=== PATIENT | male | born 1955 | race Hispanic/Latino ===

== ENCOUNTER → 2018-01-24 | Outpatient (CLI) | payer OTHER ==
[~2018-01-24] MED LIST: ASPI-555 PO; ATOR40TA71 PO; CALC667T5 PO; FOLI0.8T41 PO; IOHEXOL-350 50ML VIAL IV ONE; IOHEXOL-350 75 ML VIAL IV ONE; LEVO50TA4 PO; METO50TA18 PO
== END | disposition home or self-care (01) ==
LOC: RAH 08:10
PROVIDERS: ATTEND Internal Medicine Cardiovascular Disease
DX: I70.0 Atherosclerosis of aorta (principal); I73.9 Peripheral vascular disease, unspecified; I25.10 Atherosclerotic heart disease of native coronary artery without angina pectoris
CPT/HCPCS: 75635; Q9967 ×2

== ENCOUNTER 2018-05-22 08:41 | Emergency (ER) | payer OTHER ==
[~2018-05-22 08:41] MED LIST changes: -IOHEXOL-350 50ML VIAL IV ONE; -IOHEXOL-350 75 ML VIAL IV ONE
[2018-05-22 09:57] LABS: BASOPHILS % (AUTO) 1.1 % (0.0-5.0); EOSINOPHILS % (AUTO) 2.4 % (0.0-8.0); HEMATOCRIT 36.5 % (42-54); MEAN CORPUSCULAR HEMOGLOBIN 28.8 pg (27.0-33.0); MEAN CORPUSCULAR HGB CONC 32.5 g/dL (32.0-36.0); MEAN CORPUSCULAR VOLUME 88.4 fL (79-99); MONOCYTES % (AUTO) 6.1 % (3.0-13.0); NEUTROPHILS % (AUTO) 83.4 % (40.0-77.0); PLATELET COUNT (AUTO) 123 K/uL (130-400); RED BLOOD CELL COUNT(AUTO) 4.13 MIL/uL (4.50-6.20); RED CELL DISTRIBUTION WIDTH 19.8 % (11.0-15.5); WHITE BLOOD COUNT (AUTO) 5.2 K/uL (4.8-10.8)
[2018-05-22 10:10] LABS: INR 1.02 (0.85-1.15); PARTIAL THROMBOPLASTIN TIME 28.5 SEC (26.3-35.5); PROTHROMBIN TIME 10.7 SEC (9.6-11.6)
[2018-05-22 10:12] LABS: CREATININE 5.6 mg/dL (0.5-1.5); POTASSIUM 3.9 mmol/L (3.5-5.1)
[2018-05-22 10:20] LABS: ALBUMIN 3.4 g/dL (3.5-5.0); BILIRUBIN,TOTAL 1.6 mg/dL (0.2-1.0); TOTAL PROTEIN, SERUM 7.4 g/dL (6.0-8.3)
[2018-05-22 10:50] LABS: CRP QUANTITATIVE 29.2 mg/L (0.00-9.0)
[2018-05-22 11:06] LABS: ERYTHROCYTE SEDIMENTATION RATE 35 MM/HR (0-20)
== END 2018-05-22 11:20 | disposition home or self-care (01) ==
LOC: EDH 08:41
DX: E87.70 Fluid overload, unspecified (principal); I12.0 Hypertensive chronic kidney disease with stage 5 chronic kidney disease or end stage renal disease; E11.22 Type 2 diabetes mellitus with diabetic chronic kidney disease; N18.6 End stage renal disease; E78.5 Hyperlipidemia, unspecified; Z99.2 Dependence on renal dialysis; Z88.6 Allergy status to analgesic agent; Z98.890 Other specified postprocedural states
CPT/HCPCS: 36415; 71045; 80053; 82550; 84484; 85025; 85610; 85651; 85730; 86140; 93005; 93970

== ENCOUNTER → 2018-11-15 | Outpatient (CLI) | payer OTHER ==
[~2018-11-15] MED LIST changes: +AMLO5TAB9 PO; +CALC667C10 PO; -CALC667T5 PO; +CILO100T PO; -FOLI0.8T41 PO; +INSU100V3 SQ; -METO50TA18 PO; +NPH,100V SQ; +SEVE800T27 PO
== END | disposition home or self-care (01) ==
LOC: SHCH 08:04
PROVIDERS: ATTEND Internal Medicine Cardiovascular Disease
DX: I08.1 Rheumatic disorders of both mitral and tricuspid valves (principal); I11.9 Hypertensive heart disease without heart failure; I27.20 Pulmonary hypertension, unspecified
CPT/HCPCS: 93306

== ENCOUNTER → 2018-12-05 | Outpatient (CLI) | payer OTHER ==
[~2018-12-05] VITALS: Ht 177.8 cm; Wt 103.4 kg
[~2018-12-05] MED LIST changes: +REGADENOSON 0.4 MG/5 ML PF SYG IVP SCH
== END | disposition home or self-care (01) ==
LOC: SHCH 09:02
PROVIDERS: ATTEND Internal Medicine Cardiovascular Disease
DX: I10 Essential (primary) hypertension (principal); I25.10 Atherosclerotic heart disease of native coronary artery without angina pectoris
CPT/HCPCS: 78452; 93017; 96374; A9500 ×2; J2785

== ENCOUNTER 2019-02-12 10:15 | Emergency (ER) | payer OTHER ==
[~2019-02-12 10:15] MED LIST changes: -REGADENOSON 0.4 MG/5 ML PF SYG IVP SCH
[2019-02-12] MEDS ORDERED: CEFTRIAXONE SODIUM 1 GM ONE (12:17)
[2019-02-12] MEDS ORDERED: SODIUM CHLORIDE 0.9% 100 ML IV ONE (12:18)
[2019-02-12 12:21] LABS: EOSINOPHILS % (AUTO) 2.3 % (0.0-8.0); HEMATOCRIT 35.7 % (42-54); LYMPHOCYTES % (AUTO) 7.5 % (21.0-51.0); MEAN CORPUSCULAR HEMOGLOBIN 30.2 pg (27.0-33.0); MEAN CORPUSCULAR HGB CONC 33.8 g/dL (32.0-36.0); MEAN CORPUSCULAR VOLUME 89.4 fL (79-99); NEUTROPHILS % (AUTO) 81.2 % (40.0-77.0); PLATELET COUNT (AUTO) 102 K/uL (130-400); RED BLOOD CELL COUNT(AUTO) 3.99 MIL/uL (4.50-6.20); RED CELL DISTRIBUTION WIDTH 17.5 % (11.0-15.5); WHITE BLOOD COUNT (AUTO) 6.2 K/uL (4.8-10.8)
[2019-02-12 12:36] LABS: PLATELET MORPHOLOGY COMMENT SLIGHTLY DECREASED
[2019-02-12] MEDS ORDERED: ACETAMINOPHEN EXTRA STRENGTH 500 MG TABLET ONE (12:42)
[2019-02-12 13:05] LABS: CREATININE 4.9 mg/dL (0.5-1.5); POTASSIUM 4.3 mmol/L (3.5-5.1)
[2019-02-12 13:09] LABS: ALBUMIN 3.1 g/dL (3.5-5.0); BILIRUBIN,TOTAL 1.5 mg/dL (0.2-1.0); TOTAL PROTEIN, SERUM 7.4 g/dL (6.0-8.3)
== END 2019-02-12 13:56 | disposition home or self-care (01) ==
LOC: EDH 10:15
DX: L03.211 Cellulitis of face (principal); E11.22 Type 2 diabetes mellitus with diabetic chronic kidney disease; I12.0 Hypertensive chronic kidney disease with stage 5 chronic kidney disease or end stage renal disease; N18.6 End stage renal disease; E78.5 Hyperlipidemia, unspecified; Z99.2 Dependence on renal dialysis; Z79.4 Long term (current) use of insulin; Z88.6 Allergy status to analgesic agent
CPT/HCPCS: 36415; 80053; 85025; 96374; 99284; J0696

== ENCOUNTER 2020-01-08 11:27 | Observation (INO) | payer OTHER ==
[2020-01-04 12:24] LABS: BASOPHILS % (AUTO) 1.1 % (0.0-5.0); EOSINOPHILS % (AUTO) 4.3 % (0.0-8.0); HEMATOCRIT 37.5 % (42-54); LYMPHOCYTES % (AUTO) 16.8 % (21.0-51.0); MEAN CORPUSCULAR HEMOGLOBIN 30.1 pg (27.0-33.0); MEAN CORPUSCULAR HGB CONC 33.3 g/dL (32.0-36.0); MEAN CORPUSCULAR VOLUME 90.4 fL (79-99); MONOCYTES % (AUTO) 9.2 % (3.0-13.0); NEUTROPHILS % (AUTO) 68.3 % (40.0-77.0); PLATELET COUNT (AUTO) 92 K/uL (130-400); RED BLOOD CELL COUNT(AUTO) 4.15 MIL/uL (4.50-6.20); RED CELL DISTRIBUTION WIDTH 15.2 % (11.0-15.5); WHITE BLOOD COUNT (AUTO) 3.7 K/uL (4.8-10.8)
[2020-01-04 12:27] LABS: APPEARANCE,URINE Clear (CLEAR); BILIRUBIN,URINE Negative (NEGATIVE); COLOR,URINE Dark Yellow (YELLOW); GLUCOSE, URINE (UA) TRACE mg/dL (NEGATIVE); KETONES,URINE Negative (NEGATIVE); LEUKOCYTE ESTERASE ,URINE Small (NEGATIVE); NITRATE,URINE Negative (NEGATIVE); OCCULT BLOOD,URINE Small (NEGATIVE); PROTEIN,URINE 300 mg/dL (NEGATIVE)
[2020-01-04 12:42] LABS: INR 1.08 (0.85-1.15); PARTIAL THROMBOPLASTIN TIME 27.5 SEC (26.3-35.5); PROTHROMBIN TIME 11.6 SEC (9.6-11.6)
[2020-01-04 12:49] LABS: CREATININE 4.9 mg/dL (0.5-1.5); POTASSIUM 3.9 mmol/L (3.5-5.1)
[2020-01-04 14:02] LABS: BACTERIA,URINE Rare /HPF (None Seen); RBC,URINE 0-1 /HPF (0-1); SQUAMOUS EPITHELIAL CELL,UR 0-2 /HPF (0-2)
--- NOTE | 2020-01-07 09:48 | NUR ---
LABS ANORMAL LABS AND CHEST XRAY REPORTED AND FAXED TO [facility], NO FURTHER ORDERS GIVEN, OK TO PROCEED WITH PLANNED PROCEDURE.
[2020-01-08] VITALS (10 sets, daily range): BP systolic 138–166; BP diastolic 68–80
[~2020-01-08] VITALS: Ht 177.8 cm; Wt 94.9 kg
[~2020-01-08 11:27] MED LIST changes: +ACETAMINOPHEN 325 MG TAB PO PRN; -AMLO5TAB9 PO; -ASPI-555 PO; +ASPI-556 PO; -CALC667C10 PO; -CILO100T PO; -INSU100V3 SQ; -LEVO50TA4 PO; -NPH,100V SQ; -SEVE800T27 PO; +SODIUM CHLORIDE 0.9% 500ML 500 ML IV SCH
[2020-01-08] MEDS ORDERED: SODIUM CHLORIDE 0.9% 1000ML 1,000 ML IV ONE (11:35)
--- NOTE | 2020-01-08 12:00 | NUR ---
DAY PT ARRIVAL PRE-CATH PT ARRIVED TO ROOM AMBULATORY NO COMPLAINT OF DISTRESS .[id number]. AT BEDSIDE.
[2020-01-08] MEDS ORDERED: HEPARIN SODIUM 1000UNIT/ML 10ML VIAL ONE (16:00)
[2020-01-08] MEDS ORDERED: IOHEXOL-350 75 ML VIAL IV ONE (16:00)
[2020-01-08] MEDS ORDERED: IOHEXOL 350 MG/ML 100ML INFUS..BTL IV ONE (16:00)
[2020-01-08] MEDS ORDERED: IOHEXOL-350 50ML VIAL IV ONE (16:00)
[2020-01-08] MEDS ORDERED: MEPERIDINE-PF 25 MG/ML SYG ONE (16:01)
[2020-01-08] MEDS ORDERED: LIDOCAINE HCL 2% 20ML ONE (16:01)
[2020-01-08] MEDS ORDERED: NITROGLYCERIN 2 MG/VIAL VIAL IV ONE (16:01)
[2020-01-08] MEDS ORDERED: MIDAZOLAM HCL 1 MG/ML 2ML VIAL ONE (16:01)
[2020-01-08] MEDS ORDERED: CLOPIDOGREL BISULFATE 300 MG TAB ONE (17:04)
[2020-01-08] MEDS ORDERED: ASPIRIN 81MG TAB.CHEW ONE (17:04)
[2020-01-08] MEDS ORDERED: DEXTROSE 50%-WATER 50 ML DISP.SYRIN IV PRN (17:15)
[2020-01-08] MEDS ORDERED: GLUCAGON 1MG KIT 1 MG ML IM PRN (17:15)
--- NOTE | 2020-01-08 18:00 | NUR ---
HOSPITALIST . WAS CALLED . FOR ADMISSION . CARE. AND DR. OLMEDO . WAS PAGED FOR THE ADMISSION NOTIFICATIONS
--- NOTE | 2020-01-08 18:00 | NUR ---
POSTOP. FROM SLEEVE SETTER LOCKSTITCH, REVIEW . ORDERS AND CARE. RT SCOTT LE DRY AND CLEAN. DENIES ANY CHEST PAIN, AND CALL LIGHT IN REACH.
[2020-01-08] MEDS ORDERED: CALC667T6 PO (19:03)
[2020-01-08] MEDS ORDERED: GABA-529 PO (19:03)
[2020-01-08] MEDS ORDERED: INSU100C6 SQ (19:59)
--- NOTE | 2020-01-08 20:00 | NUR ---
Doppler Check Patient s/p cardiac catheterization today. Dressing to right groin intact with no bleeding. Extremity warm to touch with sensation. Patient remain in flat position with pillow under head for comfort, denies pain at this time. Telemetry pack in place reading sinus rhythm in the 80s. Swelling noted to bilateral lower extremity, pulse not palpable but present on Doppler assessment. SHITAL Stone from the hospitalist group informed of patient's admission to the unit at 1907. His remains at the bedside.
[2020-01-08] MEDS ORDERED: ATORVASTATIN CALCIUM 20 MG TABLET PO SCH (21:00)
[2020-01-08] MEDS: INSULIN HUMULIN R 100 UNIT/ML 3ML SQ SCH (21:00)
--- NOTE | 2020-01-09 01:47 | NUR ---
Doppler Check Doppler check performed on dorsalis pedis pulse, the same noted strong regular amplification. Toes are pink, extremity warm to touch. Patient reminded that the extremity needs to remain flat until morning. Will continue to monitor patient.
--- NOTE | 2020-01-09 04:10 | NUR ---
Doppler Check Doppler check done on right and left dorsalis pedis for comparison. Pulse strong and regular, limb warm to touch with sensation and movement. Right groin dressing remains dry and intact.
[2020-01-09 04:12] VITALS: BP 158/76
[2020-01-09 06:14] LABS: HEMATOCRIT 36.6 % (42-54); MEAN CORPUSCULAR HEMOGLOBIN 29.5 pg (27.0-33.0); MEAN CORPUSCULAR HGB CONC 32.5 g/dL (32.0-36.0); MEAN CORPUSCULAR VOLUME 90.8 fL (79-99); RED BLOOD CELL COUNT(AUTO) 4.03 MIL/uL (4.50-6.20); RED CELL DISTRIBUTION WIDTH 15.2 % (11.0-15.5); WHITE BLOOD COUNT (AUTO) 4.3 K/uL (4.8-10.8)
--- NOTE | 2020-01-09 06:20 | NUR ---
Critical Lab Lab reported BUN- 61 and Cr- 9.2, Dr. Navarro paged at [phone] for Nephrology consult at 0620. Dialysis nurse on the unit spoke to her about the patient as today is his regularly scheduled dialysis day. She stated that Dr. Navarro has to see the patient first. Dr. Navarro called back at 0646 with orders for inpatient dialysis today, to inform cloth mercerizer back tender print production manager, and he will be in to see that patient later today. glass inspector Rachell Duran informed. RN stated that she will need order for acute Hepatitis panel. Orders will be entered.
[2020-01-09 06:22] LABS: POTASSIUM 5.2 mmol/L (3.5-5.1)
[2020-01-09 06:24] LABS: CREATININE 9.2 mg/dL (0.5-1.5)
[2020-01-09] MEDS: INSULIN HUMULIN R 100 UNIT/ML 3ML SQ SCH ×2 (06:37→11:30)
[2020-01-09 07:44] VITALS: BP 140/70
[2020-01-09] MEDS ORDERED: ASPIRIN 81 MG EC TAB PO SCH (09:00)
[2020-01-09] MEDS ORDERED: PANTOPRAZOLE SODIUM 40 MG TABLET.DR PO SCH (09:00)
[2020-01-09] MEDS ORDERED: CLOPIDOGREL BISULFATE 75 MG TAB PO SCH (09:00)
[2020-01-09 11:48] VITALS: BP 135/64
[2020-01-09] MEDS ORDERED: CLOP75TA14 PO (12:17)
[2020-01-09] MEDS ORDERED: METO25PO2 MC (12:17)
--- NOTE | 2020-01-09 14:33 | NUR ---
1925 PATIENT SIGNED HALL LETTER, I FAXED HALL LETTER TO [id number] AND PLACED IN CHART UNDER CONSENT TAB.
--- NOTE | 2020-01-09 15:33 | NUR ---
PATIENT DISCHARGE PATIENT DISCHARGED, IV DISCONTINUED, CATHLON INTACT BLEEDING CONTROLLED, PATIENT TOLERATED WITHOUT INCIDENT. DISCUSSED WITH PATIENT FOLLOW UP APPOINTMENT, AND NEW MEDICATIONS ALONG WITH STENT CARD. PATIENT STATED HE HAD NO ADDITIONAL QUESTIONS.
[2020-01-10 15:13] LABS: HEPATITIS A ANTIBODY IGM Negative (Negative); HEPATITIS B CORE IGM Negative (Negative); HEPATITIS Bs ANTIGEN SCREEN P Negative (Negative)
== END 2020-01-09 16:00 | disposition home or self-care (01) ==
LOC: DAH 11:27 → 4BH 11:28
PROVIDERS: ADMIT Internal Medicine; ATTEND Internal Medicine
DX: I25.10 Atherosclerotic heart disease of native coronary artery without angina pectoris (principal); I12.0 Hypertensive chronic kidney disease with stage 5 chronic kidney disease or end stage renal disease; N18.6 End stage renal disease; E78.5 Hyperlipidemia, unspecified; K21.9 Gastro-esophageal reflux disease without esophagitis; D64.9 Anemia, unspecified; I42.9 Cardiomyopathy, unspecified; Z99.2 Dependence on renal dialysis; Z95.1 Presence of aortocoronary bypass graft; Z79.899 Other long term (current) drug therapy; Z88.6 Allergy status to analgesic agent
CPT/HCPCS: 36415 ×2; 71045; 80048 ×2; 80074; 81001; 82948 ×4; 85025; 85027; 85610; 85730; 87088; 93005; 93459; 96372; A4215; A4216; A4221; A4222; A4223 ×3; A4606; A4663; C1760; C1769; C1887; C1894; C9604; G0378 ×14; J1644 ×2; J2175; J2250; J3490 ×2; J7030; Q9965; Q9967 ×2; 90935; 99156; 99157

== ENCOUNTER 2020-02-07 13:31 | Observation (INO) | payer OTHER ==
[~2020-02-07] VITALS: Ht 160 cm; Wt 94.9 kg
[~2020-02-07 13:31] MED LIST changes: -ACETAMINOPHEN 325 MG TAB PO PRN; +CALC667T6 PO; +CLOP75TA14 PO; +GABA-529 PO; +INSU100C6 SQ; +METO25PO2 MC; -SODIUM CHLORIDE 0.9% 500ML 500 ML IV SCH
[2020-02-07 14:12] LABS: EOSINOPHILS % (AUTO) 2.2 % (0.0-8.0); HEMATOCRIT 36.3 % (42-54); LYMPHOCYTES % (AUTO) 11.1 % (21.0-51.0); MEAN CORPUSCULAR HEMOGLOBIN 30.4 pg (27.0-33.0); MEAN CORPUSCULAR HGB CONC 32.8 g/dL (32.0-36.0); MEAN CORPUSCULAR VOLUME 92.8 fL (79-99); MONOCYTES % (AUTO) 8.2 % (3.0-13.0); NEUTROPHILS % (AUTO) 77.2 % (40.0-77.0); PLATELET COUNT (AUTO) 101 K/uL (130-400); RED BLOOD CELL COUNT(AUTO) 3.91 MIL/uL (4.50-6.20); RED CELL DISTRIBUTION WIDTH 16.2 % (11.0-15.5); WHITE BLOOD COUNT (AUTO) 5.8 K/uL (4.8-10.8)
[2020-02-07] MEDS ORDERED: ASPIRIN 325 MG TABLET ONE (14:22)
[2020-02-07 14:24] LABS: ALBUMIN 3.8 g/dL (3.5-5.0); BILIRUBIN,TOTAL 1.1 mg/dL (0.2-1.0); POTASSIUM 5.3 mmol/L (3.5-5.1); TOTAL PROTEIN, SERUM 8.4 g/dL (6.0-8.3)
[2020-02-07 14:28] LABS: CREATININE 8.1 mg/dL (0.5-1.5)
[2020-02-07 14:34] LABS: INR 1.07 (0.85-1.15); PARTIAL THROMBOPLASTIN TIME 25.7 SEC (26.3-35.5); PROTHROMBIN TIME 11.5 SEC (9.6-11.6)
[2020-02-07] MEDS ORDERED: LACTULOSE 20 GM/30 ML UDCUP PO PRN (18:30)
[2020-02-07] MEDS ORDERED: SODIUM POLYSTYRENE SULFONATE 15 GM/60 ML ML PO SCH (18:30)
[2020-02-07] MEDS ORDERED: ONDANSETRON HCL 4 MG/2 ML VIAL IV PRN (18:30)
[2020-02-07] MEDS ORDERED: ACETAMINOPHEN 325 MG TAB PO PRN (18:30)
[2020-02-07] MEDS ORDERED: GABAPENTIN 100 MG CAPSULE PO PRN (18:30)
[2020-02-07] MEDS: CALCIUM ACETATE 667 MG CAPSULE PO SCH (18:33)
[2020-02-07 20:09] LABS: APPEARANCE,URINE Cloudy (CLEAR); BILIRUBIN,URINE Negative (NEGATIVE); COLOR,URINE Yellow (YELLOW); GLUCOSE, URINE (UA) 500 mg/dL (NEGATIVE); KETONES,URINE Trace mg/dL (NEGATIVE); LEUKOCYTE ESTERASE ,URINE Moderate (NEGATIVE); NITRATE,URINE Negative (NEGATIVE); OCCULT BLOOD,URINE Trace (NEGATIVE); PH,URINE 7.5 (5.0-8.0); PROTEIN,URINE 300 mg/dL (NEGATIVE)
[2020-02-07 20:12] LABS: POTASSIUM 5.5 mmol/L (3.5-5.1)
[2020-02-07 20:18] LABS: CREATININE 8.7 mg/dL (0.5-1.5)
[2020-02-07 20:34] LABS: BACTERIA,URINE Few /HPF (None Seen); RBC,URINE None Seen /HPF (0-1); WBC,URINE 26-50 /HPF (0-1)
[2020-02-07 20:35] LABS: SQUAMOUS EPITHELIAL CELL,UR 0-2 /HPF (0-2)
[2020-02-07] MEDS: METOPROLOL TARTRATE 25 MG TAB PO SCH (21:00)
[2020-02-07] MEDS: INSULIN HUMULIN R 100 UNIT/ML 3ML SQ SCH (21:00)
[2020-02-07] MEDS ORDERED: FAMOTIDINE 20MG TAB 20 MG TAB ONE (21:56)
[2020-02-07] MEDS ORDERED: SODIUM POLYSTYRENE SULFONATE 15 GM/60 ML ML ONE (21:56)
[2020-02-07] MEDS ORDERED: GABAPENTIN 100 MG CAPSULE ONE (21:57)
[2020-02-07] MEDS ORDERED: METOPROLOL TARTRATE 25 MG TAB ONE (21:57)
[2020-02-07] MEDS ORDERED: CALCIUM ACETATE 667 MG CAPSULE PO ONE (21:57)
[2020-02-07 23:50] VITALS: BP 140/67
[2020-02-07] MEDS ORDERED: SEVE0.8P3 PO (23:59)
[2020-02-08 03:49] LABS: EOSINOPHILS % (AUTO) 4.2 % (0.0-8.0); HEMATOCRIT 32.4 % (42-54); LYMPHOCYTES % (AUTO) 12.3 % (21.0-51.0); MEAN CORPUSCULAR HEMOGLOBIN 30.2 pg (27.0-33.0); MEAN CORPUSCULAR VOLUME 91.5 fL (79-99); MONOCYTES % (AUTO) 10.6 % (3.0-13.0); NEUTROPHILS % (AUTO) 71.7 % (40.0-77.0); PLATELET COUNT (AUTO) 101 K/uL (130-400); RED BLOOD CELL COUNT(AUTO) 3.54 MIL/uL (4.50-6.20); RED CELL DISTRIBUTION WIDTH 15.5 % (11.0-15.5); WHITE BLOOD COUNT (AUTO) 6.1 K/uL (4.8-10.8)
[2020-02-08 04:01] VITALS: BP 129/52
[2020-02-08 04:05] LABS: ALBUMIN 3.3 g/dL (3.5-5.0); POTASSIUM 5.6 mmol/L (3.5-5.1)
[2020-02-08 04:29] LABS: CREATININE 9.2 mg/dL (0.5-1.5)
[2020-02-08] MEDS: INSULIN HUMULIN R 100 UNIT/ML 3ML SQ SCH ×3 (06:03→21:17)
[2020-02-08 08:00] VITALS: BP_SYST 129; BP_SYST 146; BP_DIAS 64; BP_DIAS 88
[2020-02-08] MEDS: FAMOTIDINE 20MG TAB 20 MG TAB PO SCH (09:53)
[2020-02-08] MEDS: CALCIUM ACETATE 667 MG CAPSULE PO SCH ×3 (09:54→17:04)
[2020-02-08] MEDS: ASPIRIN 81MG TAB.CHEW PO SCH (09:55)
[2020-02-08] MEDS: SEVELAMER HCL 800 MG TABLET PO SCH ×3 (09:55→21:13)
[2020-02-08] MEDS: ATORVASTATIN CALCIUM 20 MG TABLET PO SCH (09:56)
[2020-02-08] MEDS: CLOPIDOGREL BISULFATE 75 MG TAB PO SCH (09:56)
[2020-02-08] MEDS: METOPROLOL TARTRATE 25 MG TAB PO SCH (09:56)
--- NOTE | 2020-02-08 12:18 | NUR ---
CM NOTE/IA IA DONE BY EFFIE VICTORIA. PER PATIENT, LIVES WITH SPOUSE, HAS WHEELCHAIR, NO PROVIDERS OR HOME HEALTH, IS SEMI INDEPENDENT WITH ADLS, HAS DIALYSIS Tuesday AND FRIDAYS, AND FEELS SAFE TO RETURN HOME ONCE DISCHARGED FROM HOSPITAL. Addendum: 02/08/20 at 1221 by JESSIKA ROMAN RN CM Amended: Links added.
--- NOTE | 2020-02-08 12:21 | NUR ---
CM NOTE/PROVIDERS PATIENT INTERESTED IN PROVIDER SERVICES, BUSINESS CARD FOR AREA AGENCY ON AGING GIVEN TO PATIENT FOR PROVIDERS SERVICES AT HOME. PT VERBALIZED UNDERSTANDING OF INFORMATION.
[2020-02-08 12:54] VITALS: BP 132/59
[2020-02-08 16:00] VITALS: BP 155/73
--- NOTE | 2020-02-08 19:20 | NUR ---
PM Assessment Received pt out of bed stated he is ready to get in the shower, quick routine assessment done, IV access wrap in plastic, pt denies feeling of any weakness/dizziness, claimed he feels a lot better at this time. Plan of care discuss with some concern questions addressed. PT reminded to pull the call button string if eh feels dizzy when taking a shower, agreed.
[2020-02-08 20:45] VITALS: BP 126/64
[2020-02-09 00:03] VITALS: BP 132/73
[2020-02-09 04:43] VITALS: BP 125/62
[2020-02-09 05:10] LABS: BASOPHILS % (AUTO) 0.9 % (0.0-5.0); EOSINOPHILS % (AUTO) 5.6 % (0.0-8.0); HEMATOCRIT 30.3 % (42-54); LYMPHOCYTES % (AUTO) 14.2 % (21.0-51.0); MEAN CORPUSCULAR HEMOGLOBIN 30.1 pg (27.0-33.0); MEAN CORPUSCULAR VOLUME 91.3 fL (79-99); MONOCYTES % (AUTO) 12.8 % (3.0-13.0); NEUTROPHILS % (AUTO) 66.3 % (40.0-77.0); PLATELET COUNT (AUTO) 91 K/uL (130-400); RED BLOOD CELL COUNT(AUTO) 3.32 MIL/uL (4.50-6.20); RED CELL DISTRIBUTION WIDTH 15.6 % (11.0-15.5); WHITE BLOOD COUNT (AUTO) 5.4 K/uL (4.8-10.8)
[2020-02-09 05:30] LABS: ALBUMIN 3.2 g/dL (3.5-5.0); CREATININE 7.8 mg/dL (0.5-1.5); MAGNESIUM 2.1 mg/dL (1.80-2.40); PHOSPHORUS 4.3 mg/dL (2.5-4.9)
[2020-02-09] MEDS: INSULIN HUMULIN R 100 UNIT/ML 3ML SQ SCH ×2 (05:48→12:07)
[2020-02-09 07:00] VITALS: BP 122/60
[2020-02-09 08:14] LABS: HEPATITIS Bs ANTIGEN SCREEN P Negative (Negative)
[2020-02-09] MEDS: CALCIUM ACETATE 667 MG CAPSULE PO SCH ×2 (08:46→12:03)
[2020-02-09] MEDS: ATORVASTATIN CALCIUM 20 MG TABLET PO SCH (08:46)
[2020-02-09] MEDS: FAMOTIDINE 20MG TAB 20 MG TAB PO SCH (08:46)
[2020-02-09] MEDS: ASPIRIN 81MG TAB.CHEW PO SCH (08:46)
[2020-02-09] MEDS: CLOPIDOGREL BISULFATE 75 MG TAB PO SCH (08:46)
[2020-02-09] MEDS: SEVELAMER HCL 800 MG TABLET PO SCH ×2 (08:46→12:03)
[2020-02-09 11:00] VITALS: BP 132/52
--- NOTE | 2020-02-09 15:02 | NUR ---
DISCHARGE INSTRUCTIONS GIVEN TO PATIENT, MADE AWARE OF NEED TO FOLLOW UP WITH PCP IN ONE WEEK AND TO OBTAIN REFERRAL FOR ENT. MADE AWARE TO FOLLOW UP WITH DR. BOUCHER IN 1-2 WEEKS, AND CONTINUE WITH DIALYSIS SCHEDULED. MADE AWARE TO STOP METOPROLOL, ALL OTHER MEDICATIONS CONTINUE WITH NO CHANGES. IV AND TELE REMOVED. PATIENT DENIES ANY DIZZINESS AT THIS TIME REPORTS FEELING WELL. V/S STABLE. ALL QUESTIONS ANSWERED
== END 2020-02-09 15:15 | disposition home or self-care (01) ==
LOC: EDH 13:31 → EDHIP 18:24 → INTOOBSV 18:24 → 4AH 23:50
PROVIDERS: ADMIT Hospitalist; ATTEND Hospitalist
DX: R55 Syncope and collapse (principal); I12.0 Hypertensive chronic kidney disease with stage 5 chronic kidney disease or end stage renal disease; E11.22 Type 2 diabetes mellitus with diabetic chronic kidney disease; E11.21 Type 2 diabetes mellitus with diabetic nephropathy; N18.6 End stage renal disease; E78.5 Hyperlipidemia, unspecified; I25.10 Atherosclerotic heart disease of native coronary artery without angina pectoris; I25.5 Ischemic cardiomyopathy; E87.5 Hyperkalemia; I65.21 Occlusion and stenosis of right carotid artery; D64.9 Anemia, unspecified; F17.200 Nicotine dependence, unspecified, uncomplicated; Z95.810 Presence of automatic (implantable) cardiac defibrillator; Z95.5 Presence of coronary angioplasty implant and graft; Z99.2 Dependence on renal dialysis; Z79.4 Long term (current) use of insulin; Z79.82 Long term (current) use of aspirin; Z79.899 Other long term (current) drug therapy; Z88.6 Allergy status to analgesic agent; W18.39XA Other fall on same level, initial encounter; Y93.67 Activity, basketball; Y92.89 Other specified places as the place of occurrence of the external cause
CPT/HCPCS: 36415 ×3; 70450; 71045; 73600; 80053 ×3; 81001; 82550; 82948 ×4; 83735; 84100; 84484 ×2; 85025 ×3; 85610; 85730; 86704; 86706; 87088; 87340; 87520; 93005; 93880; 96372 ×2; 99285; G0378 ×42; J1815 ×2; 80048; 90935

== ENCOUNTER 2020-04-22 11:15 | Emergency (ER) | payer OTHER ==
[~2020-04-22 11:15] MED LIST changes: -METO25PO2 MC; +SEVE0.8P3 PO
[2020-04-22] MEDS ORDERED: MORPHINE SULFATE 4 MG/1ML SYG ONE (12:50)
== END 2020-04-22 14:35 | disposition home or self-care (01) ==
LOC: EDH 11:15
DX: S23.41XA Sprain of ribs, initial encounter (principal); S70.02XA Contusion of left hip, initial encounter; I12.0 Hypertensive chronic kidney disease with stage 5 chronic kidney disease or end stage renal disease; E11.22 Type 2 diabetes mellitus with diabetic chronic kidney disease; N18.6 End stage renal disease; Z99.2 Dependence on renal dialysis; Z88.6 Allergy status to analgesic agent; W08.XXXA Fall from other furniture, initial encounter; Y93.89 Activity, other specified; Y92.89 Other specified places as the place of occurrence of the external cause; Y99.8 Other external cause status
CPT/HCPCS: 71101; 73502; 96372; 99284; J2270

== ENCOUNTER 2020-05-21 09:53 | Emergency (ER) | payer OTHER ==
[2020-05-21 10:33] LABS: BASOPHILS % (AUTO) 0.9 % (0.0-5.0); EOSINOPHILS % (AUTO) 7.4 % (0.0-8.0); LYMPHOCYTES % (AUTO) 11.4 % (21.0-51.0); MEAN CORPUSCULAR HEMOGLOBIN 30.4 pg (27.0-33.0); MEAN CORPUSCULAR HGB CONC 33.1 g/dL (32.0-36.0); MEAN CORPUSCULAR VOLUME 91.6 fL (79-99); MONOCYTES % (AUTO) 9.9 % (3.0-13.0); NEUTROPHILS % (AUTO) 70.2 % (40.0-77.0); PLATELET COUNT (AUTO) 96 K/uL (130-400); RED BLOOD CELL COUNT(AUTO) 3.82 MIL/uL (4.50-6.20); WHITE BLOOD COUNT (AUTO) 4.5 K/uL (4.8-10.8)
[2020-05-21 10:39] LABS: POTASSIUM 4.3 mmol/L (3.5-5.1)
[2020-05-21 10:40] LABS: CREATININE 5.2 mg/dL (0.5-1.5)
[2020-05-21 10:44] LABS: ALBUMIN 3.8 g/dL (3.5-5.0); BILIRUBIN,TOTAL 1.2 mg/dL (0.2-1.0)
[2020-05-21 10:46] LABS: INR 1.13 (0.85-1.15); PROTHROMBIN TIME 12.2 SEC (9.6-11.6)
[2020-05-21 10:47] LABS: PARTIAL THROMBOPLASTIN TIME 26.9 SEC (26.3-35.5)
== END 2020-05-21 15:12 | disposition home or self-care (01) ==
LOC: EDH 09:53
DX: I95.3 Hypotension of hemodialysis (principal); I12.0 Hypertensive chronic kidney disease with stage 5 chronic kidney disease or end stage renal disease; E11.22 Type 2 diabetes mellitus with diabetic chronic kidney disease; N18.6 End stage renal disease; E78.5 Hyperlipidemia, unspecified; Z88.6 Allergy status to analgesic agent; Z99.2 Dependence on renal dialysis
CPT/HCPCS: 36415; 71045; 80053; 84484; 85025; 85610; 85730; 93005

== ENCOUNTER 2020-05-25 12:26 | Inpatient (IN) | payer OTHER ==
[2020-05-25] MEDS ORDERED: ONDANSETRON 4MG INJ ONE (12:42)
[2020-05-25 13:01] LABS: EOSINOPHILS % (AUTO) 5.3 % (0.0-8.0); HEMATOCRIT 35.4 % (42-54); LYMPHOCYTES % (AUTO) 12.7 % (21.0-51.0); MEAN CORPUSCULAR HGB CONC 33.1 g/dL (32.0-36.0); MEAN CORPUSCULAR VOLUME 93.9 fL (79-99); NEUTROPHILS % (AUTO) 73.8 % (40.0-77.0); PLATELET COUNT (AUTO) 79 K/uL (130-400); RED BLOOD CELL COUNT(AUTO) 3.77 MIL/uL (4.50-6.20); RED CELL DISTRIBUTION WIDTH 16.2 % (11.0-15.5); WHITE BLOOD COUNT (AUTO) 5.1 K/uL (4.8-10.8)
[2020-05-25 13:09] LABS: ALBUMIN 3.6 g/dL (3.5-5.0); POTASSIUM 4.9 mmol/L (3.5-5.1); TOTAL PROTEIN, SERUM 7.5 g/dL (6.0-8.3)
[2020-05-25] MEDS ORDERED: MECLIZINE HCL 25 MG TABLET ONE (13:40)
[2020-05-25 13:47] LABS: INR 1.18 (0.85-1.15); PROTHROMBIN TIME 12.7 SEC (9.6-11.6)
[2020-05-25 13:49] LABS: PARTIAL THROMBOPLASTIN TIME 25.4 SEC (26.3-35.5)
[2020-05-25] MEDS ORDERED: ASPIRIN 325 MG TABLET ONE (13:49)
[2020-05-25] MEDS ORDERED: CLOPIDOGREL 75MG TAB PO SCH (15:30)
[2020-05-25] MEDS ORDERED: CLOPIDOGREL 75MG TAB ONE (16:17)
[2020-05-25 19:00] VITALS: BP 172/77
[2020-05-25 20:00] VITALS: BP 172/77
[2020-05-25] MEDS ORDERED: ACETAMINOPHEN 500 MG TABLET PO PRN (20:00)
[2020-05-25] MEDS: NITROGLYCERIN 1GM OINT 1 INCH/1GM TD SCH (20:57)
[2020-05-26] VITALS (7 sets, daily range): BP systolic 114–153; BP diastolic 44–66
[2020-05-26] MEDS: NITROGLYCERIN 1GM OINT 1 INCH/1GM TD SCH ×3 (04:06→20:00)
[2020-05-26] MEDS ORDERED: 0.9% NACL 250ML 250 ML IV ONE (05:14)
[2020-05-26 06:05] LABS: BASOPHILS % (AUTO) 1.4 % (0.0-5.0); EOSINOPHILS % (AUTO) 5.3 % (0.0-8.0); HEMATOCRIT 33.6 % (42-54); LYMPHOCYTES % (AUTO) 12.2 % (21.0-51.0); MEAN CORPUSCULAR HEMOGLOBIN 29.8 pg (27.0-33.0); MEAN CORPUSCULAR HGB CONC 32.1 g/dL (32.0-36.0); MEAN CORPUSCULAR VOLUME 92.8 fL (79-99); MONOCYTES % (AUTO) 8.4 % (3.0-13.0); NEUTROPHILS % (AUTO) 72.4 % (40.0-77.0); PLATELET COUNT (AUTO) 78 K/uL (130-400); RED BLOOD CELL COUNT(AUTO) 3.62 MIL/uL (4.50-6.20); RED CELL DISTRIBUTION WIDTH 16.1 % (11.0-15.5); WHITE BLOOD COUNT (AUTO) 5.8 K/uL (4.8-10.8)
[2020-05-26 06:25] LABS: HEMOGLOBIN A1C 8.3 % (4.0-6.0)
[2020-05-26 06:35] LABS: POTASSIUM 5.2 mmol/L (3.5-5.1); THYROID STIMULATING HORMONE 4.16 uIU/mL (0.36-3.74)
[2020-05-26 06:47] LABS: CREATININE 9.4 mg/dL (0.5-1.5)
[2020-05-26] MEDS: ASPIRIN 81 MG EC TAB PO SCH (09:00)
[2020-05-26] MEDS: CALCIUM AC 667MG CAP PO SCH ×3 (09:53→17:24)
[2020-05-26] MEDS: SEVELAMER HCL 800 MG TABLET PO SCH ×3 (09:53→17:24)
[2020-05-26] MEDS: ATORVASTATIN 40 MG TABLET PO SCH (09:53)
[2020-05-26] MEDS: CLOPIDOGREL 75MG TAB PO SCH (12:41)
[2020-05-26] MEDS: INSULIN HUMULIN R 100 UNIT/ML 3ML SQ SCH ×2 (16:30→20:59)
[2020-05-26 19:07] LABS: HEMATOCRIT 32.5 % (42-54); MEAN CORPUSCULAR HEMOGLOBIN 30.8 pg (27.0-33.0); MEAN CORPUSCULAR HGB CONC 33.5 g/dL (32.0-36.0); MEAN CORPUSCULAR VOLUME 91.8 fL (79-99); PLATELET COUNT (AUTO) 74 K/uL (130-400); RED BLOOD CELL COUNT(AUTO) 3.54 MIL/uL (4.50-6.20); RED CELL DISTRIBUTION WIDTH 15.9 % (11.0-15.5); WHITE BLOOD COUNT (AUTO) 5.5 K/uL (4.8-10.8)
[2020-05-26 19:42] LABS: BAND NEUTROPHILS % (MANUAL) 2 % (0-2); EOSINOPHILS % (MANUAL) 4 % (1-6); LYMPHOCYTES % (MANUAL) 12 % (22-44); MONOCYTES % (MANUAL) 5 % (2-9); REACTIVE LYMPHOCYTES 5 % (0-0); SEGMENTED NEUTROPHILS % 72 % (40-70)
[2020-05-26 19:43] LABS: MAN.DIFF COMMENT-IMPRESSION MANUAL DIFFERENTIAL
[2020-05-26] MEDS ORDERED: GABAPENTIN 100 MG CAPSULE PO SCH (23:00)
[2020-05-27] VITALS (9 sets, daily range): BP systolic 104–161; BP diastolic 41–72
[2020-05-27] MEDS: NITROGLYCERIN 1GM OINT 1 INCH/1GM TD SCH ×3 (04:00→20:00)
[2020-05-27 04:28] LABS: BASOPHILS % (AUTO) 1.1 % (0.0-5.0); EOSINOPHILS % (AUTO) 5.5 % (0.0-8.0); HEMATOCRIT 33.2 % (42-54); LYMPHOCYTES % (AUTO) 13.9 % (21.0-51.0); MEAN CORPUSCULAR HEMOGLOBIN 30.3 pg (27.0-33.0); MEAN CORPUSCULAR HGB CONC 32.8 g/dL (32.0-36.0); MEAN CORPUSCULAR VOLUME 92.2 fL (79-99); MONOCYTES % (AUTO) 11.3 % (3.0-13.0); PLATELET COUNT (AUTO) 78 K/uL (130-400); RED CELL DISTRIBUTION WIDTH 15.8 % (11.0-15.5); WHITE BLOOD COUNT (AUTO) 5.3 K/uL (4.8-10.8)
[2020-05-27 04:50] LABS: ALBUMIN 3.1 g/dL (3.5-5.0); BILIRUBIN,TOTAL 0.8 mg/dL (0.2-1.0); PHOSPHORUS 5.4 mg/dL (2.5-4.9); POTASSIUM 4.4 mmol/L (3.5-5.1); TOTAL PROTEIN, SERUM 6.9 g/dL (6.0-8.3); URIC ACID 4.8 mg/dL (2.6-7.2)
[2020-05-27 04:58] LABS: CREATININE 8.4 mg/dL (0.5-1.5)
[2020-05-27] MEDS: INSULIN HUMULIN R 100 UNIT/ML 3ML SQ SCH ×4 (06:28→21:31)
[2020-05-27] MEDS: ASPIRIN 81 MG EC TAB PO SCH (08:53)
[2020-05-27] MEDS: ATORVASTATIN 40 MG TABLET PO SCH (08:53)
[2020-05-27] MEDS: CALCIUM AC 667MG CAP PO SCH ×3 (08:53→16:50)
[2020-05-27] MEDS: CLOPIDOGREL 75MG TAB PO SCH (08:53)
[2020-05-27] MEDS: SEVELAMER HCL 800 MG TABLET PO SCH ×3 (08:53→16:50)
[2020-05-27 10:54] LABS: INR 1.23 (0.85-1.15); PROTHROMBIN TIME 13.2 SEC (9.6-11.6)
[2020-05-28] VITALS (7 sets, daily range): BP systolic 123–146; BP diastolic 59–77
[2020-05-28] MEDS: NITROGLYCERIN 1GM OINT 1 INCH/1GM TD SCH ×2 (04:00→11:57)
[2020-05-28 04:32] LABS: HEMATOCRIT 32.8 % (42-54); MEAN CORPUSCULAR HEMOGLOBIN 29.9 pg (27.0-33.0); MEAN CORPUSCULAR HGB CONC 32.3 g/dL (32.0-36.0); MEAN CORPUSCULAR VOLUME 92.7 fL (79-99); RED BLOOD CELL COUNT(AUTO) 3.54 MIL/uL (4.50-6.20); WHITE BLOOD COUNT (AUTO) 5.4 K/uL (4.8-10.8)
[2020-05-28 04:43] LABS: POTASSIUM 4.7 mmol/L (3.5-5.1)
[2020-05-28 05:02] LABS: CREATININE 9.8 mg/dL (0.5-1.5)
[2020-05-28] MEDS: INSULIN HUMULIN R 100 UNIT/ML 3ML SQ SCH ×2 (07:03→11:30)
[2020-05-28] MEDS: CALCIUM AC 667MG CAP PO SCH ×2 (08:00→11:53)
[2020-05-28] MEDS: SEVELAMER HCL 800 MG TABLET PO SCH ×2 (08:00→11:53)
[2020-05-28] MEDS: ATORVASTATIN 40 MG TABLET PO SCH (10:58)
[2020-05-28] MEDS: CLOPIDOGREL 75MG TAB PO SCH (10:59)
[2020-05-28] MEDS: ASPIRIN 81 MG EC TAB PO SCH (10:59)
== END 2020-05-28 17:14 | disposition home or self-care (01) | DRG 280 ==
LOC: EDH 12:26 → EDHIP 15:19 → 4BH 17:04
PROVIDERS: ADMIT Internal Medicine; ATTEND Internal Medicine
PROC: 5A1D70Z Performance of Urinary Filtration, Intermittent, Less than 6 Hours Per Day (ICD-10-PCS; principal; 2020-05-26)
PROC: 5A1D70Z Performance of Urinary Filtration, Intermittent, Less than 6 Hours Per Day (ICD-10-PCS; 2020-05-28)
PROC: 4A00X4Z Measurement of Central Nervous Electrical Activity, External Approach (ICD-10-PCS; 2020-05-28)
DX: R55 Syncope and collapse (principal); N18.6 End stage renal disease; I21.4 Non-ST elevation (NSTEMI) myocardial infarction; I12.0 Hypertensive chronic kidney disease with stage 5 chronic kidney disease or end stage renal disease; I42.9 Cardiomyopathy, unspecified; Z95.1 Presence of aortocoronary bypass graft; Z95.810 Presence of automatic (implantable) cardiac defibrillator; I25.10 Atherosclerotic heart disease of native coronary artery without angina pectoris; Z95.5 Presence of coronary angioplasty implant and graft; D69.6 Thrombocytopenia, unspecified; E78.5 Hyperlipidemia, unspecified; E11.22 Type 2 diabetes mellitus with diabetic chronic kidney disease; D63.8 Anemia in other chronic diseases classified elsewhere; Z79.02 Long term (current) use of antithrombotics/antiplatelets; Z82.0 Family history of epilepsy and other diseases of the nervous system; Z82.49 Family history of ischemic heart disease and other diseases of the circulatory system; Z83.3 Family history of diabetes mellitus
CPT/HCPCS: 36415; 70450; 71045; 80048; 80053; 82550; 82948; 83036; 84100; 84443; 84484; 84550; 85025; 85027; 85610; 85730; 90935; 93005; 93306; 93356; 93880; 93930; 95819; G0378; J1815; J2405; J7050

== ENCOUNTER → 2020-05-30 | Outpatient (CLI) | payer OTHER | END | disposition home or self-care (01) | LOC: CANPRECLI → RAH 09:49 | PROVIDERS: ATTEND Internal Medicine Cardiovascular Disease | DX: J90 Pleural effusion, not elsewhere classified (principal); I12.0 Hypertensive chronic kidney disease with stage 5 chronic kidney disease or end stage renal disease; E11.22 Type 2 diabetes mellitus with diabetic chronic kidney disease; N18.6 End stage renal disease; E78.5 Hyperlipidemia, unspecified; Z88.6 Allergy status to analgesic agent; Z99.2 Dependence on renal dialysis | CPT/HCPCS: 32555; 71045 ×2; A4215 ==

== ENCOUNTER → 2020-06-10 | Outpatient (CLI) | payer OTHER | END | disposition home or self-care (01) | LOC: RAH 14:34 | PROVIDERS: ATTEND Internal Medicine Cardiovascular Disease | DX: I12.0 Hypertensive chronic kidney disease with stage 5 chronic kidney disease or end stage renal disease (principal); N18.6 End stage renal disease; J90 Pleural effusion, not elsewhere classified; Z95.1 Presence of aortocoronary bypass graft | CPT/HCPCS: 71046 ==

== ENCOUNTER → 2020-07-04 | Outpatient (CLI) | payer OTHER | END | disposition home or self-care (01) | LOC: RAH 11:41 | PROVIDERS: ATTEND Internal Medicine Cardiovascular Disease | DX: J90 Pleural effusion, not elsewhere classified (principal); I12.0 Hypertensive chronic kidney disease with stage 5 chronic kidney disease or end stage renal disease; E11.22 Type 2 diabetes mellitus with diabetic chronic kidney disease; N18.6 End stage renal disease; E78.5 Hyperlipidemia, unspecified; Z72.89 Other problems related to lifestyle; Z88.6 Allergy status to analgesic agent | CPT/HCPCS: 32555; 71045; A4215 ==

== ENCOUNTER → 2021-01-01 | Outpatient (CLI) | payer OTHER | END | disposition home or self-care (01) | LOC: RAH 09:39 | PROVIDERS: ATTEND Internal Medicine Cardiovascular Disease | DX: J90 Pleural effusion, not elsewhere classified (principal); I12.0 Hypertensive chronic kidney disease with stage 5 chronic kidney disease or end stage renal disease; E11.22 Type 2 diabetes mellitus with diabetic chronic kidney disease; N18.6 End stage renal disease; E78.5 Hyperlipidemia, unspecified; Z88.6 Allergy status to analgesic agent; Z72.89 Other problems related to lifestyle | CPT/HCPCS: 32555; 71045; C1729 ==

== ENCOUNTER 2021-03-12 11:51 | Inpatient (IN) | payer OTHER ==
[~2021-03-12] VITALS: Ht 177.8 cm; Wt 86.8 kg
[2021-03-12] VITALS (12 sets, daily range): BP systolic 128–153; BP diastolic 62–74
[2021-03-12 12:47] LABS: BASOPHILS % (AUTO) 1.4 % (0.0-5.0); EOSINOPHILS % (AUTO) 1.6 % (0.0-8.0); HEMATOCRIT 40.1 % (42-54); LYMPHOCYTES % (AUTO) 17.2 % (21.0-51.0); MEAN CORPUSCULAR HEMOGLOBIN 30.1 pg (27.0-33.0); MEAN CORPUSCULAR HGB CONC 31.4 g/dL (32.0-36.0); MEAN CORPUSCULAR VOLUME 95.9 fL (79-99); NEUTROPHILS % (AUTO) 62.6 % (40.0-77.0); PLATELET COUNT (AUTO) 135 K/uL (130-400); RED BLOOD CELL COUNT(AUTO) 4.18 MIL/uL (4.50-6.20); RED CELL DISTRIBUTION WIDTH 15.8 % (11.0-15.5)
[2021-03-12] MEDS ORDERED: FUROSEMIDE 40MG VIAL IV ONE (13:00)
[2021-03-12] MEDS ORDERED: ASPIRIN 325MG TAB PO ONE (13:00)
[2021-03-12 13:10] LABS: B-TYPE NATRIURETIC PEPTIDE 2470 pg/mL (0-100)
[2021-03-12 13:12] LABS: CREATININE 6.5 mg/dL (0.5-1.5); POTASSIUM 5.2 mmol/L (3.5-5.1)
[2021-03-12 13:16] LABS: ALBUMIN 3.6 g/dL (3.5-5.0); BILIRUBIN,TOTAL 1.1 mg/dL (0.2-1.0); MAGNESIUM 2.4 mg/dL (1.80-2.40); TOTAL PROTEIN, SERUM 8.1 g/dL (6.0-8.3)
[2021-03-12] MEDS ORDERED: ACETAMINOPHEN 325 MG TAB PO PRN (15:00)
[2021-03-12] MEDS ORDERED: ONDANSETRON 4MG INJ IVP PRN (15:00)
[2021-03-12] MEDS ORDERED: DEXTROSE 50%-WATER 50 ML DISP.SYRIN IV PRN (15:00)
[2021-03-12] MEDS ORDERED: GLUCAGON 1MG KIT 1 MG ML IM PRN (15:00)
[2021-03-12] MEDS: OSELTAMIVIR PHOSPHATE 75 MG CAP PO SCH (15:29)
[2021-03-12] MEDS: INSULIN HUMULIN R 100 UNIT/ML 3ML SQ SCH ×2 (16:30→21:00)
[2021-03-12] MEDS ORDERED: NPH,100V SQ (23:04)
[2021-03-12] MEDS ORDERED: MIDO5TAB4 PO (23:07)
[2021-03-13] VITALS (21 sets, daily range): BP systolic 108–146; BP diastolic 54–72
[2021-03-13 05:42] LABS: CREATINE KINASE, TOTAL 59 U/L (21-232); MYOGLOBIN 228 ng/mL (10-92)
[2021-03-13] MEDS: INSULIN HUMULIN R 100 UNIT/ML 3ML SQ SCH ×4 (05:59→21:08)
[2021-03-13] MEDS: FAMOTIDINE 20MG VIAL IV SCH (08:27)
[2021-03-13 08:53] LABS: CREATININE 6.3 mg/dL (0.5-1.5); POTASSIUM 4.4 mmol/L (3.5-5.1)
[2021-03-13] MEDS: CLOPIDOGREL 75MG TAB PO SCH (17:13)
[2021-03-13] MEDS: ASPIRIN 81MG CHEW TAB PO SCH (17:13)
[2021-03-13] MEDS: ENOXAPARIN SODIUM 30 MG/0.3 ML SQ SCH (17:16)
[2021-03-13] MEDS ORDERED: GABAPENTIN 300 MG CAPSULE ONE (18:32)
[2021-03-13] MEDS ORDERED: ATORVASTATIN 20 MG TABLET PO SCH (21:00)
[2021-03-13] MEDS: MIDODRINE HCL 5 MG TABLET PO SCH (21:05)
[2021-03-14] VITALS: BP 127/58
[2021-03-14 04:00] VITALS: BP 110/43
[2021-03-14 06:07] LABS: HEMATOCRIT 31.7 % (42-54); MEAN CORPUSCULAR HEMOGLOBIN 30.3 pg (27.0-33.0); MEAN CORPUSCULAR HGB CONC 32.5 g/dL (32.0-36.0); MEAN CORPUSCULAR VOLUME 93.2 fL (79-99); RED BLOOD CELL COUNT(AUTO) 3.4 MIL/uL (4.50-6.20); RED CELL DISTRIBUTION WIDTH 15.4 % (11.0-15.5)
[2021-03-14] MEDS: INSULIN HUMULIN R 100 UNIT/ML 3ML SQ SCH ×2 (06:15→11:30)
[2021-03-14 06:30] LABS: CREATININE 5.9 mg/dL (0.5-1.5); POTASSIUM 4.1 mmol/L (3.5-5.1)
[2021-03-14 07:49] VITALS: BP 114/53
[2021-03-14] MEDS: CLOPIDOGREL 75MG TAB PO SCH (08:16)
[2021-03-14] MEDS: CALCIUM AC 667MG CAP PO SCH ×2 (08:16→12:23)
[2021-03-14] MEDS: FAMOTIDINE 20MG VIAL IV SCH (08:17)
[2021-03-14] MEDS: MIDODRINE HCL 5 MG TABLET PO SCH ×2 (08:17→13:46)
[2021-03-14] MEDS: ASPIRIN 81MG CHEW TAB PO SCH (08:17)
[2021-03-14] MEDS: OSELTAMIVIR PHOSPHATE 75 MG CAP PO SCH (08:17)
[2021-03-14] MEDS: ENOXAPARIN SODIUM 30 MG/0.3 ML SQ SCH (08:18)
[2021-03-14] MEDS ORDERED: GABAPENTIN 100 MG CAPSULE PO SCH (09:00)
[2021-03-14 12:11] VITALS: BP 126/56
[2021-03-14] MEDS ORDERED: OSEL75 PO (13:54)
[2021-04-11] MEDS ORDERED: GABA-529 PO (13:35)
[2021-04-11] MEDS ORDERED: LEVO50CA4 PO (13:35)
[2021-04-11] MEDS ORDERED: ATOR40TA71 PO (13:36)
[2021-04-15] MEDS ORDERED: DEXA4 PO (13:18)
[2021-04-15] MEDS ORDERED: GABA300S PO (13:18)
[2021-04-15] MEDS ORDERED: Cefuroxime Axetil PO (13:18)
== END 2021-03-14 14:54 | disposition home or self-care (01) | DRG 193 ==
LOC: EDH 11:51 → EDHIP 15:00 → 3DH 22:30
PROVIDERS: ADMIT Internal Medicine Nephrology; ATTEND Internal Medicine Nephrology
PROC: 5A1D70Z Performance of Urinary Filtration, Intermittent, Less than 6 Hours Per Day (ICD-10-PCS; principal; 2021-03-12)
PROC: 5A1D70Z Performance of Urinary Filtration, Intermittent, Less than 6 Hours Per Day (ICD-10-PCS; 2021-03-13)
DX: J10.1 Influenza due to other identified influenza virus with other respiratory manifestations (principal); N18.6 End stage renal disease; I50.43 Acute on chronic combined systolic (congestive) and diastolic (congestive) heart failure; I13.2 Hypertensive heart and chronic kidney disease with heart failure and with stage 5 chronic kidney disease, or end stage renal disease; E87.70 Fluid overload, unspecified; E11.22 Type 2 diabetes mellitus with diabetic chronic kidney disease; I25.10 Atherosclerotic heart disease of native coronary artery without angina pectoris; E78.5 Hyperlipidemia, unspecified; I25.5 Ischemic cardiomyopathy; Z20.822 Contact with and (suspected) exposure to COVID-19; E11.51 Type 2 diabetes mellitus with diabetic peripheral angiopathy without gangrene; Z79.02 Long term (current) use of antithrombotics/antiplatelets; Z79.82 Long term (current) use of aspirin; Z79.899 Other long term (current) drug therapy; Z95.810 Presence of automatic (implantable) cardiac defibrillator; Z95.5 Presence of coronary angioplasty implant and graft; Z95.1 Presence of aortocoronary bypass graft; Z99.2 Dependence on renal dialysis; Z88.8 Allergy status to other drugs, medicaments and biological substances; Z83.3 Family history of diabetes mellitus; Z82.49 Family history of ischemic heart disease and other diseases of the circulatory system
CPT/HCPCS: 36415; 71045; 80048; 80053; 82550; 82948; 83735; 83874; 83880; 84484; 85025; 85027; 87635; 87804; 87880; 90935; 93005; 93970; 99291; C9803; G0378; J1650; J1815; J1940; J3490

== ENCOUNTER 2021-04-10 17:25 | Emergency (ER) | payer OTHER ==
[~2021-04-10] VITALS: Ht 177.8 cm; Wt 86.2 kg
[~2021-04-10 17:25] MED LIST changes: -INSU100C6 SQ; +MIDO5TAB4 PO; +NPH,100V SQ; +OSEL75 PO; -SEVE0.8P3 PO
[2021-04-10 17:27] VITALS: BP 107/56
[2021-04-10 18:13] LABS: INFLUENZA TYPE A NEGATIVE FOR TYPE A (NEG); INFLUENZA TYPE B NEGATIVE FOR TYPE B (NEG)
[2021-04-10] MEDS ORDERED: ONDA4TAB10 PO (18:29)
[2021-04-10] MEDS ORDERED: ONDANSETRON ODT 4MG TAB ONE (18:33)
[2021-04-10] MEDS ORDERED: ONDANSETRON ODT 4MG TAB SL SCH (19:30)
[2021-04-11] MEDS ORDERED: GABA-529 PO (13:35)
[2021-04-11] MEDS ORDERED: LEVO50CA4 PO (13:35)
[2021-04-11] MEDS ORDERED: ATOR40TA71 PO (13:36)
[2021-04-15] MEDS ORDERED: GABA300S PO (13:18)
[2021-04-15] MEDS ORDERED: Cefuroxime Axetil PO (13:18)
[2021-04-15] MEDS ORDERED: DEXA4 PO (13:18)
== END 2021-04-10 18:39 | disposition home or self-care (01) ==
LOC: EDH 17:25
DX: U07.1 COVID-19 (principal); I11.0 Hypertensive heart disease with heart failure; E11.9 Type 2 diabetes mellitus without complications; E78.00 Pure hypercholesterolemia, unspecified; I50.9 Heart failure, unspecified; Z95.0 Presence of cardiac pacemaker; Z88.6 Allergy status to analgesic agent; Z79.82 Long term (current) use of aspirin; Z79.899 Other long term (current) drug therapy
CPT/HCPCS: 87635; 87804 ×2; 93005; 99284; C9803